=== PATIENT | male | born 1960 | race Asian ===

== ENCOUNTER 2021-09-27 07:50 | Inpatient (IN) | payer BC ==
[2021-09-27] MEDS ORDERED: ACETAMINOPHEN 1000 MG/100 ML BAG IVPB ONE (08:44)
[2021-09-27] MEDS ORDERED: SODIUM CHLORIDE 1,000 ML IV STA ×2 (08:44→10:27)
[2021-09-27] MEDS ORDERED: ACETAMINOPHEN INJECTION 100 ML IVPB ONE (09:06)
[2021-09-27 09:36] LABS: BASO % 0.7 % (0-2.0); EOS % 0.3 % (0-4.5); HEMATOCRIT 41.6 % (35.4-49); HEMOGLOBIN 14.3 GM/dL (11.7-16.9); LYMPH % 23.8 % (8-40); MCH 30.4 pg (25.7-33.7); MCHC 34.4 g/dl (32.0-35.9); MEAN CELL VOLUME 88.3 fl (80-96); MEAN PLT VOLUME 6.8 fl (7.5-11.1); MONO % 8.7 % (3.8-10.2); NEUT % 66.5 % (42.8-82.8); PLATELET COUNT 451 10^3/uL (134-434); RBC 4.71 M/mm3 (4.00-5.60); RDW 12.9 % (11.9-15.9)
[2021-09-27 09:43] LABS: INR 1.07 (0.83-1.09); PROTHROMBIN TIME (PATIENT) 12.3 SEC (9.7-13.0)
[2021-09-27 09:46] LABS: ACTIVATED PTT 39.6 SECONDS (25.2-36.5)
[2021-09-27 09:57] LABS: ALBUMIN 3.5 g/dl (3.4-5.0); BLOOD UREA NITROGEN 12.8 mg/dL (7-18); CALCIUM 9.6 mg/dL (8.5-10.1)
[2021-09-27 10:01] LABS: CREATININE 0.7 mg/dL (0.55-1.3)
[2021-09-27 10:02] LABS: BILIRUBIN,TOTAL 0.2 mg/dL (0.2-1)
[2021-09-27] MEDS: PANTOPRAZOLE 40 MG TABLET PO SCH (16:27)
[2021-09-27] MEDS: ENOXAPARIN NA (PORCINE) 40 MG/0.4 ML DISP.SYRIN SQ SCH (16:28)
[2021-09-27] MEDS: oxyCODONE HCL 5 MG TABLET PO PRN (21:00)
[2021-09-27] MEDS: ACETAMINOPHEN 325 MG TABLET (FP) PO PRN (21:01)
[2021-09-28 09:33] LABS: BASO % 0.5 % (0-2.0); EOS % 0.3 % (0-4.5); HEMATOCRIT 37.5 % (35.4-49); LYMPH % 16.4 % (8-40); MCH 30.5 pg (25.7-33.7); MCHC 34.7 g/dl (32.0-35.9); MEAN PLT VOLUME 6.9 fl (7.5-11.1); MONO % 7.4 % (3.8-10.2); NEUT % 75.4 % (42.8-82.8); PLATELET COUNT 393 10^3/uL (134-434); RBC 4.26 M/mm3 (4.00-5.60); RDW 13.1 % (11.9-15.9); WHITE BLOOD COUNT 8.7 K/mm3 (4.0-10.0)
[2021-09-28] MEDS: ACETAMINOPHEN 325 MG TABLET (FP) PO PRN ×2 (09:49→18:33)
[2021-09-28] MEDS: oxyCODONE HCL 5 MG TABLET PO PRN ×2 (09:49→18:33)
[2021-09-28 09:57] LABS: CALCIUM 8.9 mg/dL (8.5-10.1)
[2021-09-28 09:58] LABS: BLOOD UREA NITROGEN 8.3 mg/dL (7-18)
[2021-09-28 10:01] LABS: CREATININE 0.8 mg/dL (0.55-1.3)
[2021-09-28 10:14] LABS: ERYTHROCYTE SEDIMENTATION RATE 77 mm/hr (0-20)
[2021-09-28] MEDS: PANTOPRAZOLE 40 MG TABLET PO SCH (13:06)
[2021-09-28] MEDS: ENOXAPARIN NA (PORCINE) 40 MG/0.4 ML DISP.SYRIN SQ SCH (13:06)
[2021-09-29] MEDS: oxyCODONE HCL 5 MG TABLET PO PRN (06:56)
[2021-09-29] MEDS: ACETAMINOPHEN 325 MG TABLET (FP) PO PRN (06:57)
[2021-09-29] MEDS ORDERED: IBUPROFEN 600 MG TABLET (FP) PO PRN ×2 (07:37→17:34)
[2021-09-29] MEDS ORDERED: IBUPROFEN 400 MG TABLET (FP) PO ONE (07:38)
[2021-09-29] MEDS: GABAPENTIN 100 MG CAPSULE PO SCH ×3 (10:17→22:35)
[2021-09-29] MEDS: PANTOPRAZOLE 40 MG TABLET PO SCH (10:17)
[2021-09-29 10:33] LABS: BASO % 0.4 % (0-2.0); EOS % 0.4 % (0-4.5); HEMATOCRIT 37.2 % (35.4-49); LYMPH % 22.4 % (8-40); MCH 30.5 pg (25.7-33.7); MCHC 34.9 g/dl (32.0-35.9); MEAN CELL VOLUME 87.6 fl (80-96); MEAN PLT VOLUME 6.8 fl (7.5-11.1); MONO % 7.7 % (3.8-10.2); NEUT % 69.1 % (42.8-82.8); PLATELET COUNT 378 10^3/uL (134-434); RBC 4.25 M/mm3 (4.00-5.60); RDW 12.9 % (11.9-15.9); WHITE BLOOD COUNT 7.8 K/mm3 (4.0-10.0)
[2021-09-29 11:15] LABS: ERYTHROCYTE SEDIMENTATION RATE 73 mm/hr (0-20)
[2021-09-29] MEDS ORDERED: BUPIVACAINE HCL/PF 0.25% (2.5MG/ML) 10 ML VIAL ONE (12:57)
[2021-09-29] MEDS ORDERED: PROPOFOL 20 ML ONE ×2 (14:05→16:08)
[2021-09-29] MEDS ORDERED: ROPIVACAINE HCL 0.5% 30ML VIAL ONE (14:06)
[2021-09-29] MEDS ORDERED: MIDAZOLAM HCL 2 MG/2 ML SINGLE DOSE VIAL ONE ×2 (14:06)
[2021-09-29] MEDS ORDERED: ceFAZolin SODIUM 1 GM VIAL IVPB ONE (14:41)
[2021-09-29] MEDS ORDERED: EPINEPHrine 1:1,000 - 30 MG/30 ML VIAL SQ ONE (15:12)
[2021-09-29 15:15] VITALS: BMI 21.7
[2021-09-29] MEDS ORDERED: DEXAMETHASONE SOD PHOSPHATE 4 MG/1 ML VIAL ONE (17:12)
[2021-09-29] MEDS ORDERED: ONDANSETRON 4 MG/2 ML VIAL ONE (17:12)
[2021-09-29] MEDS ORDERED: ONDANSETRON 4 MG/2 ML VIAL IVPUSH PRN (17:43)
[2021-09-29] MEDS ORDERED: PROMETHAZINE HCL 25 MG/1 ML VIAL IVPUSH PRN (17:43)
[2021-09-29] MEDS ORDERED: LACTATED RINGERS SOLUTION 1,000 ML IV SCH (17:45)
[2021-09-29] MEDS: CEFAZOLIN 2 GM in DEXTROSE 5%-WATER - 2 GM/100 ML IVPB IVPB SCH (22:35)
[2021-09-30] MEDS ORDERED: oxyCODONE HCL 5 MG TABLET PO PRN ×3 (06:20→06:22)
[2021-09-30] MEDS: CEFAZOLIN 2 GM in DEXTROSE 5%-WATER - 2 GM/100 ML IVPB IVPB SCH ×2 (06:33→14:21)
[2021-09-30] MEDS: GABAPENTIN 100 MG CAPSULE PO SCH ×3 (06:33→21:44)
[2021-09-30] MEDS: ACETAMINOPHEN 500 MG TABLET (FP) PO SCH ×3 (06:35→18:02)
[2021-09-30] MEDS: IBUPROFEN 600 MG TABLET (FP) PO SCH ×3 (06:40→21:44)
[2021-09-30] MEDS: PANTOPRAZOLE 40 MG TABLET PO SCH (10:30)
[2021-09-30] MEDS: CEPHALEXIN MONOHYDRATE 500 MG CAPSULE (UD) PO SCH ×2 (17:05→21:44)
[2021-10-01] MEDS: ACETAMINOPHEN 500 MG TABLET (FP) PO SCH ×2 (00:20→06:32)
[2021-10-01] MEDS: GABAPENTIN 100 MG CAPSULE PO SCH (06:32)
[2021-10-01] MEDS: IBUPROFEN 600 MG TABLET (FP) PO SCH (06:59)
[2021-10-01] MEDS: CEPHALEXIN MONOHYDRATE 500 MG CAPSULE (UD) PO SCH (09:57)
[2021-10-01] MEDS: PANTOPRAZOLE 40 MG TABLET PO SCH (09:57)
[2021-10-01 10:08] VITALS: BP 140/81; PULSE 77; TEMP 98
== END 2021-10-01 10:55 | disposition home or self-care (01) | DRG 509 ==
LOC: JER 07:50 → JERBED 13:07 → J5S 15:17
PROVIDERS: ADMIT Internal Medicine; ATTEND Internal Medicine
PROC: 0R9J3ZX Drainage of Right Shoulder Joint, Percutaneous Approach, Diagnostic (ICD-10-PCS; principal; 2021-09-27)
PROC: 0RJJ4ZZ Inspection of Right Shoulder Joint, Percutaneous Endoscopic Approach (ICD-10-PCS; 2021-09-27)
PROC: 0RBJ0ZZ Excision of Right Shoulder Joint, Open Approach (ICD-10-PCS; 2021-09-27)
PROC: 0RNJ0ZZ Release Right Shoulder Joint, Open Approach (ICD-10-PCS; 2021-09-27)
DX: M75.51 Bursitis of right shoulder (principal); M00.9 Pyogenic arthritis, unspecified; E87.1 Hypo-osmolality and hyponatremia; M65.9 Synovitis and tenosynovitis, unspecified; E03.9 Hypothyroidism, unspecified; M25.411 Effusion, right shoulder; M25.511 Pain in right shoulder; S43.431A Superior glenoid labrum lesion of right shoulder, initial encounter; M75.101 Unspecified rotator cuff tear or rupture of right shoulder, not specified as traumatic; M94.211 Chondromalacia, right shoulder
CPT/HCPCS: 36415; 71046-TC-FY; 73030-TC-RT-FY; 80048; 80053; 83605; 85025; 85610; 85651; 85730; 86140; 86480; 86618; 87040; 87070; 87075; 87102; 87116; 87186; 87205; 87206; 87210; 87476; 88304-TC; 93005; 93010; 94760; 97161-GP; 99285-25; C9803-CS; U0003; U0005